=== PATIENT | female | born 1990 | race Caucasian/White ===

== ENCOUNTER 2019-07-17 09:40 | Emergency (ER) | payer OTHER ==
[~2019-07-17] VITALS: Ht 142.2 cm; Wt 57.6 kg
[~2019-07-17 09:40] MED LIST: AZITHROMYCIN 2250 MG PO; CALCIUM 1,0001 EACH PO; CIPROFLOXACIN500 M1 PO; CLONAZEPAM0.125 MG; FOLGARD TABLET1 EAC1 PO; FOLIC ACID; IBUPROFEN 600600 M1 PO; IBUPROFEN 800800 MG PO; MEDROLDOSEPACK PO; NORCO 5-325 TA1 EACH PO; PHENERGAN-CODE120 ML PO; PREDNISONE 20 M20 M1 PO; TAMIFLU; TESSALON PERLE100 MG PO; TOPAMAX 100 MG100 MG; ZPAK
[2019-07-17] MEDS ORDERED: ZONEGRAN25 MG (09:59)
[2019-07-17 10:48] VITALS: BP 114/68
== END 2019-07-17 10:48 | disposition short-term general hospital (02) ==
LOC: M.ERS 09:40
DX: O26.892 Other specified pregnancy related conditions, second trimester (principal); S00.531A Contusion of lip, initial encounter; R56.9 Unspecified convulsions; Z3A.24 24 weeks gestation of pregnancy; Z91.040 Latex allergy status; X58.XXXA Exposure to other specified factors, initial encounter; Y93.89 Activity, other specified; Y92.89 Other specified places as the place of occurrence of the external cause; Y99.8 Other external cause status